=== PATIENT | male | born 1990 | race Two or more races ===

== ENCOUNTER 2021-02-14 09:42 | Emergency (ER) | payer MEDICAID ==
[~2021-02-14] VITALS: Ht 177.8 cm; Wt 80.0 kg
[2021-02-14] MEDS ORDERED: DOXY100C2 MT (13:00)
[2021-02-14 13:34] VITALS: BP 123/81
== END 2021-02-14 13:36 | disposition home or self-care (01) ==
LOC: ER 09:42
DX: U07.1 COVID-19 (principal)
CPT/HCPCS: 71045; 87426; 99284; C9803; U0003; U0005